=== PATIENT | female | born 2000 | race African-American/Black ===

== ENCOUNTER 2019-12-11 00:27 | Emergency (ER) | payer MEDICAID, OTHER ==
[~2019-12-11] VITALS: Ht 160 cm; Wt 66.0 kg
[2019-12-11] MEDS ORDERED: BACITRACIN ZINC OINT UDPKT TOP ONE (01:45)
[2019-12-11 02:44] LABS: HCG SCREEN NEGATIVE
[2019-12-11] MEDS ORDERED: ACETAMINOPHEN WITH CODEINE 300/30MG TABLET PO ONE (03:00)
[2019-12-11] MEDS ORDERED: LIDOCAINE HCL/PF 1% 10 MG/ML 5ML VIAL IJ ONE (03:00)
[2019-12-11] MEDS ORDERED: TETANUS, DIPHTHERIA, PERTUSSIS VAC/PF 0.5ML (>7YR OLD) IM ONE (04:15)
[2019-12-11 04:16] VITALS: BP 130/55
== END 2019-12-11 04:31 | disposition home or self-care (01) ==
LOC: ER 00:27
DX: O99.89 Other specified diseases and conditions complicating pregnancy, childbirth and the puerperium (principal); O26.892 Other specified pregnancy related conditions, second trimester; Z3A.28 28 weeks gestation of pregnancy; S01.81XA Laceration without foreign body of other part of head, initial encounter; Y04.0XXA Assault by unarmed brawl or fight, initial encounter; Y92.89 Other specified places as the place of occurrence of the external cause; Y07.03 Male partner, perpetrator of maltreatment and neglect
CPT/HCPCS: 12013; 70450; 70486; 81025; 84703; 99285; J3490

== ENCOUNTER 2019-12-13 09:52 | Emergency (ER) | payer MEDICAID ==
[~2019-12-13] VITALS: Ht 160 cm; Wt 99.0 kg
[2019-12-13 10:23] VITALS: BP 165/68
== END 2019-12-13 11:48 | disposition home or self-care (01) ==
LOC: ER 09:52
DX: S01.81XD Laceration without foreign body of other part of head, subsequent encounter (principal); X58.XXXD Exposure to other specified factors, subsequent encounter
CPT/HCPCS: 99281

== ENCOUNTER 2019-12-20 10:40 | Emergency (ER) | payer MEDICAID ==
[~2019-12-20] VITALS: Ht 160 cm; Wt 92.0 kg
[2019-12-20 10:52] VITALS: BP 107/66
== END 2019-12-20 11:36 | disposition home or self-care (01) ==
LOC: ER 10:40
DX: S01.81XD Laceration without foreign body of other part of head, subsequent encounter (principal); X58.XXXD Exposure to other specified factors, subsequent encounter; J45.909 Unspecified asthma, uncomplicated; Z98.890 Other specified postprocedural states; Z90.49 Acquired absence of other specified parts of digestive tract
CPT/HCPCS: 99281

== ENCOUNTER 2024-03-25 17:20 | Emergency (ER) | payer MEDICAID ==
[~2024-03-25] VITALS: Ht 162.6 cm; Wt 99.8 kg
[2024-03-25 17:30] VITALS: BP 128/66; PULSE 85; RESP 16; TEMP 98.3; O2SAT 100
[2024-03-25] MEDS ORDERED: IBUPROFEN 600MG TABLET PO ONE (19:00)
[2024-03-25] MEDS ORDERED: NAPR220C61 MT (19:16)
== END 2024-03-26 00:21 | disposition home or self-care (01) ==
LOC: ER 17:20
DX: S13.4XXA Sprain of ligaments of cervical spine, initial encounter (principal); G89.11 Acute pain due to trauma; J45.909 Unspecified asthma, uncomplicated; Z90.49 Acquired absence of other specified parts of digestive tract; X58.XXXA Exposure to other specified factors, initial encounter; Y93.89 Activity, other specified; Y92.89 Other specified places as the place of occurrence of the external cause; Y99.8 Other external cause status
CPT/HCPCS: 99282